=== PATIENT | male | born 2000 | race American Indian/Alaskan Native ===

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

== ENCOUNTER 2021-05-05 22:45 | Emergency (ER) | payer MEDICAID ==
[2021-05-05 22:54] VITALS: BP 123/72; PULSE 87
--- NOTE | 2021-05-05 22:58 | EDM.PDOC ---
ED HPI GENERAL MEDICAL PROBLEM - General Chief Complaint: ENT Problem Stated Complaint: TONSILS INFLAMATION Time Seen by Provider: 05/05/21 22:59 Source of Information: Reports: Patient, RN History Limitations: Reports: No Limitations - History of Present Illness INITIAL COMMENTS - FREE TEXT/NARRATIVE: ED with c/o sore throat since last adolph, No ear pain, No known fever, no chills, just couldn't sleep. Last tylenol around 5pm. Throat Pain Score (Numeric/FACES): 7 - Related Data Allergies Allergy/AdvReac Type Severity Reaction Status Date / Time No Known Allergies Allergy Verified 06/07/18 19:57 Home Meds: Home Meds . [No Known Home Meds] 04/12/16 [History] Past Medical History - Past Health History Medical/Surgical History: Denies Medical/Surgical History HEENT History: Reports: None Cardiovascular History: Reports: None Respiratory History: Reports: None Gastrointestinal History: Reports: None Genitourinary History: Reports: None Musculoskeletal History: Reports: None Neurological History: Reports: None Psychiatric History: Reports: None Endocrine/Metabolic History: Reports: None Hematologic History: Reports: None Immunologic History: Reports: None Oncologic (Cancer) History: Reports: None Dermatologic History: Reports: None - Past Surgical History HEENT Surgical History: Reports: None Cardiovascular Surgical History: Reports: None Respiratory Surgical History: Reports: None GI Surgical History: Reports: None Male Surgical History: Reports: None Social & Family History - Tobacco Use Tobacco Use Status *Q: Current Every Day Tobacco User Years of Tobacco use: 1 Packs/Tins Daily: 0.5 Second Hand Smoke Exposure: Yes - Caffeine Use Caffeine Use: Reports: Soda - Recreational Drug Use Recreational Drug Use: No ED ROS ENT - Review of Systems Review Of Systems: Comprehensive ROS is negative, except as noted in HPI. ED EXAM, ENT - Physical Exam Exam: See Below Exam Limited By: No Limitations General Appearance: Alert, No Apparent Distress Eye Exam: Bilateral Eye: EOMI Ears: Normal External Exam, Hearing Grossly Normal, Normal TMs Nose: Normal Inspection Mouth/Throat: Pharyngeal Erythema, Tonsillar Erythema, Tonsillar Exudates (left), Tonsillar Swelling (left) Head: Atraumatic, Normocephalic Neck: Lymphadenopathy (L) Respiratory/Chest: No Respiratory Distress, Lungs Clear, Normal Breath Sounds Cardiovascular: Normal Peripheral Pulses, Regular Rate, Rhythm GI/Abdominal: Normal Bowel Sounds, Soft Extremities: Normal Inspection, Normal Range of Motion Neurological: Alert, Oriented, Normal Cognition Psychiatric: Normal Affect, Normal Mood Skin: Warm, Dry, Intact, Normal Color Course - Vital Signs Last Recorded V/S: Last Vital Signs Temp 98.2 F 05/05/21 22:48 Pulse 87 05/05/21 22:48 Resp 18 05/05/21 22:48 BP 123/72 05/05/21 22:48 Pulse Ox 99 05/05/21 22:48 - Orders/Labs/Meds Orders: Active Orders 24 hr Category Date Time Status CULTURE STREP A CONFIRMATION [RM] Stat Lab 05/05/21 22:53 Results STREP SCRN A RAPID W CULT CONF [RM] Stat Lab 05/05/21 22:53 Results Meds: Medications Discontinued Medications Generic Name Dose Route Start Last Admin Trade Name Freq PRN Reason Stop Dose Admin Ceftriaxone Sodium 1 gm/ 0 gm 05/05/21 23:07 05/05/21 23:20 Lidocaine HCl 2.1 ml IM 05/05/21 23:08 1 inj ONETIME ONE Administration Departure - Departure Time of Disposition: 23:22 Disposition: Home, Self-Care 01 Condition: Good Clinical Impression: Peritonsillar abscess - Discharge Information *PRESCRIPTION DRUG MONITORING PROGRAM REVIEWED*: No *COPY OF PRESCRIPTION DRUG MONITORING REPORT IN PATIENT GONZÁLEZ: No Instructions: Peritonsillar Abscess, [id number] Forms: ED Department Discharge Additional Instructions: increase fluid diet as tolerated alternate tylenol 650mg and ibuprofen 600mg every 4 hours as needed Augmentin 875mg twice daily for 14 days follow up monday if not improving or symptoms worsen Sepsis Event Note (ED) - Focused Exam Vital Signs: Vital Signs Temp Pulse Resp BP Pulse Ox 05/05/21 22:48 98.2 F 87 18 123/72 99 - My Orders Last 24 Hours: My Active Orders 05/05/21 22:53 CULTURE STREP A CONFIRMATION [RM] Stat STREP SCRN A RAPID W CULT CONF [RM] Stat - Assessment/Plan Last 24 Hours: My Active Orders 05/05/21 22:53 CULTURE STREP A CONFIRMATION [RM] Stat STREP SCRN A RAPID W CULT CONF [RM] Stat
[2021-05-05] MEDS ORDERED: cefTRIAXone 1 GM, Lidocaine 1% 2.1 ML IM ONE ×2 (23:07)
== END 2021-05-05 23:40 | disposition home or self-care (01) ==
LOC: DL.ED 22:45
DX: J36 Peritonsillar abscess (principal); Z72.0 Tobacco use
CPT/HCPCS: 87081; 87430; 96372; 99283; J0696

== ENCOUNTER 2021-05-06 13:52 | Emergency (ER) | payer MEDICAID ==
[2021-05-06 14:06] VITALS: PULSE 86
[2021-05-06] MEDS: Sodium Chloride 0.9% 1,000 ML IV ONE (14:12)
--- NOTE | 2021-05-06 14:12 | EDM.PDOC ---
ED HPI GENERAL MEDICAL PROBLEM - General Chief Complaint: ENT Problem Stated Complaint: TONSILITIS Time Seen by Provider: 05/06/21 14:05 Source of Information: Reports: Patient, Family (Mother), Old Records, RN, RN Notes Reviewed History Limitations: Reports: No Limitations - History of Present Illness INITIAL COMMENTS - FREE TEXT/NARRATIVE: Pt sent from [facility] for evaluation of a left peritonsillar abscess. Pt developed a sore throat 2 days ago. He was seen here last night, treated with Rocephin 1g IM and discharged on Augmentin. Today he feels worse. Denies fevers. Increased pain with swallowing and speaking. Pt has history of previous peritonsillar abscess, but did not f/u with ENT. Pt denies difficulty breathing. Onset: Gradual Duration: Day(s): (2) Location: Reports: Other (ENT) Quality: Reports: Ache, Pressure Severity: Severe Improves with: Reports: None Associated Symptoms: Reports: No Other Symptoms Treatments [employer]: Reports: Other Medication(s) - Related Data Allergies Allergy/AdvReac Type Severity Reaction Status Date / Time No Known Allergies Allergy Verified 06/07/18 19:57 Home Meds: Home Meds . [No Known Home Meds] 04/12/16 [History] Past Medical History - Past Health History Medical/Surgical History: Denies Medical/Surgical History HEENT History: Reports: Other (See Below) (Peritonsillar abscess) Cardiovascular History: Reports: None Respiratory History: Reports: None Gastrointestinal History: Reports: None Genitourinary History: Reports: None Musculoskeletal History: Reports: None Neurological History: Reports: None Psychiatric History: Reports: None Endocrine/Metabolic History: Reports: None Hematologic History: Reports: None Immunologic History: Reports: None Oncologic (Cancer) History: Reports: None Dermatologic History: Reports: None - Past Surgical History HEENT Surgical History: Reports: None Cardiovascular Surgical History: Reports: None Respiratory Surgical History: Reports: None GI Surgical History: Reports: None Male Surgical History: Reports: None Social & Family History - Family History Family Medical History: Unobtainable - Caffeine Use Caffeine Use: Reports: Soda - Living Situation & Occupation Living situation: Reports: with Family ED ROS ENT - Review of Systems Review Of Systems: Comprehensive ROS is negative, except as noted in HPI. ED EXAM, ENT - Physical Exam Exam: See Below Exam Limited By: No Limitations General Appearance: Alert, WD/WN, No Apparent Distress Eye Exam: Bilateral Eye: Normal Inspection Nose: Normal Inspection Mouth/Throat: Normal Gums, Normal Lips, Peritonsillar Mass (Left peritonsillar abscess), Tonsillar Erythema (Left), Tonsillar Swelling (Left). No: Tonsillar Exudates, Uvular Deviation, Uvular Edema Head: Atraumatic, Normocephalic Neck: Lymphadenopathy (L) Respiratory/Chest: No Respiratory Distress, Lungs Clear Cardiovascular: Regular Rate, Rhythm, Tachycardia Neurological: Alert, Oriented, No Motor/Sensory Deficits Psychiatric: Normal Mood Skin: Warm, Dry, Intact, Normal Color, No Rash ED I&D PROCEDURES - I&D Site: Left peritonsillar abscess Local anesthesia - Lidocaine (Xylocaine): 1% with EPI Local Anesthetic Volume: 2cc Area Incised With: 11 Blade, Needle (18g) Drainage: Purulent, Moderate Amount Probed to Break Up Loculations: No Packed With: None Sterile Dressing: None Complications: No Course - Vital Signs Last Recorded V/S: Last Vital Signs Temp 98.7 F 05/06/21 14:00 Pulse 86 05/06/21 14:00 Resp 18 05/06/21 14:00 BP 129/83 05/06/21 14:00 Pulse Ox 98 05/06/21 14:00 - Orders/Labs/Meds Orders: Active Orders 24 hr Category Date Time Status Peripheral IV Care [RC] . DIRECTED Care 05/06/21 13:54 Active CULTURE THROAT [RM] Stat Lab 05/06/21 14:45 Ordered Sodium Chloride 0.9% [Normal Saline] 1,000 ml Med 05/06/21 13:56 Active IV .BOLUS Sodium Chloride 0.9% [Saline Flush] Med 05/06/21 13:54 Active 10 ml FLUSH ASDIRECTED PRN Peripheral IV Insertion Adult [OM.PC] Stat Oth 05/06/21 13:54 Ordered Medication Orders Sodium Chloride (Normal Saline) 1,000 mls @ 999 mls/hr IV .BOLUS ONE Stop: 05/06/21 14:56 Last Admin: 05/06/21 14:12 Dose: 999 mls/hr Documented by: SANDOR Sodium Chloride (Sodium Chloride 0.9% 10 Ml Syringe) 10 ml FLUSH ASDIRECTED PRN PRN Reason: Keep Vein Open Meds: Medications Generic Name Dose Route Start Last Admin Trade Name Flaco PRN Reason Stop Dose Admin Sodium Chloride 1,000 mls @ 999 mls/hr 05/06/21 13:56 05/06/21 14:12 Normal Saline IV 05/06/21 14:56 999 mls/hr .BOLUS ONE Administration Sodium Chloride 10 ml 05/06/21 13:54 Sodium Chloride 0.9% 10 Ml Syringe FLUSH ASDIRECTED PRN Keep Vein Open Discontinued Medications Generic Name Dose Route Start Last Admin Trade Name Flaco PRN Reason Stop Dose Admin Dexamethasone 20 mg 05/06/21 13:55 05/06/21 14:42 Dexamethasone 4 Mg/Ml Sdv IVPUSH 05/06/21 13:56 20 mg ONETIME ONE Administration Hydromorphone HCl 1 mg 05/06/21 13:56 05/06/21 14:18 Hydromorphone 1 Mg/Ml Syringe IVPUSH 05/06/21 13:57 1 mg ONETIME ONE Administration Clindamycin Phosphate 900 mg/ 106 mls @ 200 mls/hr 05/06/21 13:55 05/06/21 14:20 Sodium Chloride IV 05/06/21 14:26 200 mls/hr ONETIME ONE Administration Lidocaine/Epinephrine 20 ml 05/06/21 13:54 05/06/21 14:41 Lidocaine 1% With Epinephrine 1:100,000 20 Ml Mdv INFILT 05/06/21 13:55 20 ml ONETIME ONE Administration Ondansetron HCl 4 mg 05/06/21 13:56 05/06/21 14:13 Ondansetron 4 Mg/2 Ml Sdv IV 05/06/21 13:57 4 mg ONETIME ONE Administration - Re-Assessments/Exams Free Text/Narrative Re-Assessment/Exam: 05/06/21 14:51 Pt tolerated the I&D well, and reports feeling relieved of pain and swelling. He would like to go home today and f/u with ENT as an outpt. Pt's mother states she will need to obtain a referral to [facility]. Pt advised to return to ER if worse at any time. Departure - Departure Time of Disposition: 15:30 Disposition: Home, Self-Care 01 Condition: Good Clinical Impression: Recurrent peritonsillar abscess - Discharge Information *PRESCRIPTION DRUG MONITORING PROGRAM REVIEWED*: Not Applicable *COPY OF PRESCRIPTION DRUG MONITORING REPORT IN PATIENT GONZÁLEZ: Not Applicable Instructions: Peritonsillar Abscess Forms: ED Department Discharge Additional Instructions: Rx: Clindamycin 300mg Rx: Decadron (Dexamethasone) 4mg Continue Augmentin as previously prescribed. Saltwater gargle and spit after eating or drinking for the next 5 days. Follow up with your primary clinic in 4 to 5 days for recheck and for referral to an Ear/Nose/Throat Specialist. It is very important that you see the Ear/Nose/Throat Specialist as this condition will return if the tonsil is not removed once the infection is gone. Return to the ER if your condition worsens at any time. Sepsis Event Note (ED) - Focused Exam Vital Signs: Vital Signs Temp Pulse Resp BP Pulse Ox 05/06/21 14:00 98.7 F 86 18 129/83 98 - My Orders Last 24 Hours: My Active Orders 05/06/21 13:54 Peripheral IV Care [RC] . DIRECTED Sodium Chloride 0.9% [Saline Flush] 10 ml FLUSH ASDIRECTED PRN Peripheral IV Insertion Adult [OM.PC] Stat 05/06/21 13:56 Sodium Chloride 0.9% [Normal Saline] 1,000 ml IV .BOLUS 05/06/21 14:45 CULTURE THROAT [RM] Stat - Assessment/Plan Last 24 Hours: My Active Orders 05/06/21 13:54 Peripheral IV Care [RC] . DIRECTED Sodium Chloride 0.9% [Saline Flush] 10 ml FLUSH ASDIRECTED PRN Peripheral IV Insertion Adult [OM.PC] Stat 05/06/21 13:56 Sodium Chloride 0.9% [Normal Saline] 1,000 ml IV .BOLUS 05/06/21 14:45 CULTURE THROAT [RM] Stat
[2021-05-06] MEDS: Ondansetron 4 MG/2 ML SDV IV ONE (14:13)
[2021-05-06] MEDS: HYDROmorphone 1 MG/ML Syringe IVPUSH ONE (14:18)
[2021-05-06] MEDS: Clindamycin Phosphate 900 MG in Sodium Chloride 0.9% 100 ML IV ONE (14:20)
[2021-05-06] MEDS: Lidocaine 1% with EPINEPHrine 1:100,000 20 ML MDV INFILT ONE (14:41)
[2021-05-06] MEDS: Dexamethasone 4 MG/ML SDV IVPUSH ONE (14:42)
[2021-05-06 14:48] VITALS: BP 128/84
[2021-05-06] MEDS: Sodium Chloride 0.9% 10 ML Syringe FLUSH PRN (15:09)
== END 2021-05-06 15:45 | disposition home or self-care (01) ==
LOC: DL.ED 13:52
DX: J36 Peritonsillar abscess (principal)
CPT/HCPCS: 42700; 87070; 87077; 96365; 96375; 99283-25; J1100; J1170; J2405; J3490; J7030

== ENCOUNTER 2021-06-22 16:23 | Emergency (ER) | payer MEDICAID ==
[2021-06-22 16:18] VITALS: BP 111/78; PULSE 86
== END 2021-06-22 17:45 | disposition left against medical advice (07) ==
LOC: DL.ED 16:23
DX: R11.2 Nausea with vomiting, unspecified (principal); Z53.21 Procedure and treatment not carried out due to patient leaving prior to being seen by health care provider; Z20.822 Contact with and (suspected) exposure to COVID-19
CPT/HCPCS: U0002

== ENCOUNTER 2021-10-06 17:47 | Emergency (ER) | payer MEDICAID ==
[2021-10-06 18:02] VITALS: PULSE 77
[2021-10-06 18:39] LABS: CORONAVIRUS COVID-19 NAA NEGATIVE (NEGATIVE)
== END 2021-10-06 19:15 | disposition home or self-care (01) ==
LOC: DL.ED 17:47
DX: J03.00 Acute streptococcal tonsillitis, unspecified (principal); Z72.0 Tobacco use; Z20.822 Contact with and (suspected) exposure to COVID-19
CPT/HCPCS: 0240U; 87081; 87430; 99283

== ENCOUNTER 2021-10-17 07:32 | Emergency (ER) | payer MEDICAID ==
[2021-10-17 07:55] VITALS: BP 133/76; PULSE 63
[2021-10-17] MEDS ORDERED: Sodium Chloride 0.9% 1,000 ML IV ONE (07:55)
[2021-10-17] MEDS ORDERED: Ondansetron 4 MG/2 ML SDV IVPUSH ONE (07:55)
[2021-10-17] MEDS ORDERED: Iopamidol 612 MG/ML 100 ML Bottle IVPUSH ONE (07:57)
[2021-10-17 08:26] LABS: ANION GAP 15.1 mEq/L (7-13); CHLORIDE,CL 105 mmol/L (98-107); SODIUM,NA 141 mmol/L (136-145)
[2021-10-17 08:27] LABS: CORONAVIRUS COVID-19 NAA NEGATIVE (NEGATIVE); RESPIRATORY SYNCYTIAL VIR NAA NEGATIVE (NEGATIVE)
[2021-10-17 10:39] LABS: AMPHETAMINES,URINE NEGATIVE (NEGATIVE); BARBITURATES,URINE NEGATIVE (NEGATIVE); BENZODIAZEPINE,URINE NEGATIVE (NEGATIVE); MDMA (ECSTASY), URINE NEGATIVE (NEGATIVE); METHADONE,URINE NEGATIVE (NEGATIVE); METHAMPHETAMINES,URINE NEGATIVE (NEGATIVE); OPIATES,URINE NEGATIVE (NEGATIVE); OXYCODONE,URINE NEGATIVE (NEGATIVE); PHENCYCLIDINE,URINE NEGATIVE (NEGATIVE); TCA,URINE NEGATIVE (NEGATIVE)
[2021-10-17] MEDS ORDERED: Metoclopramide 10 MG/2 ML SDV IVPUSH ONE (11:16)
[2021-10-17] MEDS ORDERED: Dicyclomine 10 MG Cap PO ONE (11:44)
== END 2021-10-17 11:52 | disposition home or self-care (01) ==
LOC: DL.ED 07:32
DX: K52.9 Noninfective gastroenteritis and colitis, unspecified (principal); R11.2 Nausea with vomiting, unspecified; Z20.822 Contact with and (suspected) exposure to COVID-19
CPT/HCPCS: 0241U; 36415; 74177; 80053; 80305-QW; 80307; 81003; 85025; 85651; 86140; 96374; 96375; 99284-25; A9270-GY; J2405; J2765; J7030; Q9967

== ENCOUNTER 2023-07-01 22:32 | Emergency (ER) | payer MEDICAID ==
[2023-07-01 23:09] VITALS: BP 138/84; PULSE 73
[2023-07-02] MEDS: cefTRIAXone 500 MG Vial IM ONE (01:00)
[2023-07-04 12:47] LABS: C.TRACHOMATIS BY TMA Negative (Negative); N.GONORRHOEAE BY TMA Positive (Negative); SOURCE URINE
== END 2023-07-02 03:23 | disposition home or self-care (01) ==
LOC: DL.ED 22:32
DX: R36.9 Urethral discharge, unspecified (principal); N36.8 Other specified disorders of urethra; R30.0 Dysuria; Z20.2 Contact with and (suspected) exposure to infections with a predominantly sexual mode of transmission; Z91.89 Other specified personal risk factors, not elsewhere classified; F17.290 Nicotine dependence, other tobacco product, uncomplicated
CPT/HCPCS: 86592; 87389; 87491; 87529; 87591; 96372; 99283; J0696

== ENCOUNTER 2024-11-04 17:31 | Emergency (ER) | payer SELFPAY ==
[2024-11-04 18:54] VITALS: BP 139/83; PULSE 100
[2024-11-04 19:22] LABS: APPEARANCE,URINE CLEAR (CLEAR); BILIRUBIN,URINE NEGATIVE (NEGATIVE); COLOR,URINE YELLOW (YELLOW); GLUCOSE,URINE NEGATIVE (NEGATIVE); KETONES,URINE NEGATIVE (NEGATIVE); LEUKOCYTE ESTERASE,URINE NEGATIVE (NEGATIVE); NITRITE,URINE NEGATIVE (NEGATIVE); OCCULT BLOOD,URINE NEGATIVE (NEGATIVE); PROTEIN,URINE NEGATIVE (NEGATIVE); UROBILINOGEN,URINE 0.2 mg/dL (0.2-1.0)
[2024-11-04] MEDS: cefTRIAXone 1 GM, Lidocaine 1% 2.1 ML IM ONE (19:44)
[2024-11-06 11:42] LABS: C.TRACHOMATIS BY TMA Positive (Negative); M GENITALIUM Negative (Negative); M GENITALIUM SOURCE Urine; N.GONORRHOEAE BY TMA Negative (Negative); SOURCE Urine
== END 2024-11-04 19:53 | disposition home or self-care (01) ==
LOC: DL.ED 17:31
DX: N34.2 Other urethritis (principal); F17.210 Nicotine dependence, cigarettes, uncomplicated
CPT/HCPCS: 81003; 87491; 87563; 87591; 96372; 99284; J0696; J2003; 99283